=== PATIENT | female | born 1960 | race Caucasian/White ===

== ENCOUNTER 2022-01-08 01:03 | Emergency (ER) | payer OTHER, SELFPAY ==
[2022-01-08 01:36] VITALS: BP 162/79; PULSE 69; RESP 16; TEMP 36.3; O2SAT 97; BMI 25.7
--- NOTE | 2022-01-08 02:27 | DI.US.S_ITS ---
PROCEDURE: US PERIPH VENOUS LOW EXTREM LT INDICATIONS: Pain in left lower leg TECHNIQUE: Real-time imaging, as well as color and pulse Doppler interrogation, were performed of the lower extremity deep veins from the inguinal ligament to the popliteal fossa. COMPARISON: None. FINDINGS: The common femoral, femoral and popliteal veins are normally compressible, and free of intraluminal thrombus. Color and pulse Doppler demonstrate normal phasic intraluminal flow. There is normal augmentation response to distal compression maneuver. IMPRESSION: Negative for deep venous thrombosis in the left lower extremity No significant discrepancy with preliminary report by overnight radiologist. Dictated by: Nitesh Naylor M.D. on 01/08/2022 at 7:10 Approved by: Nitesh Naylor M.D. on 01/08/2022 at 7:12
--- NOTE | 2022-01-08 03:35 | ED.EXTPRO ---
HPI - Extremity Problem General Chief complaint: Extremity Problem,Nontraumatic Stated complaint: possible blood clot left leg Time Seen by Provider: 01/08/22 03:33 Source: patient Mode of arrival: Ambulatory History of Present Illness HPI Narrative: 61-year-old female nonsmoker with noncontributory medical history presents for evaluation of pain, redness and warmth in her left anterior daniel in the absence of injury. She started noticing some discomfort a day or 2 ago and seems to be worse when she walks and improves with rest. She denies any fever or chills and has no chest pain or shortness of breath. She states that she has been on a road trip from [place] to [facility] over the past few weeks. She denies any history of blood clot. She states that she thinks she probably bumped her daniel on the hitch of a vehicle a few days ago but denies any other possible injury. Related Data Previous Rx's Medication Instructions Recorded cephalexin 500 mg capsule 500 mg PO Q6H 7 days #28 caps 01/08/22 Allergies Allergy/AdvReac Type Severity Reaction Status Date / Time No Known Drug Allergies Allergy Verified 01/08/22 01:36 Review of Systems Review of Systems Narrative: GENERAL: Denies chills, fatigue, malaise, fever, sweats. HEENT: Denies sinus pain, ear pain, sore throat, difficulty swallowing, dizziness. RESPIRATORY: Denies dyspnea, cough, wheezing, hemoptysis, sputum. CARDIOVASCULAR: Denies chest pain, palpitations, orthopnea, edema, GASTROINTESTINAL: Denies nausea, vomiting, abdominal pain, diarrhea, constipation, melena. : Denies dysuria, frequency, incontinence, hematuria, urinary retention. MUSCULOSKELETAL: denies weakness, joint pain, or bony pain SKIN: Denies rash, skin lesions, or other NEUROLOGIC: Denies weakness, headache, numbness, change in speech, confusion, seizures, incoordination. PSYCHIATRIC: No concerning psychosocial issues. 12 point review of systems is negative except for those stated above Patient History Social History Smoking Status: Never smoker Smoking Status: Never smoker alcohol intake frequency: a few times a week Substance Use Type: does not use Exam Narrative Exam Narrative: GEN: AOx3 and in mild distress EYES: Pupils are equal, round, and reactive to light and accommodation. Extraoccular muscles are intact bilaterally. There is no subconjunctival hemorrhage or exudate. CHEST: Lungs are clear to auscultation bilaterally and free of wheezes, rales, or rhonchi. Heart rate is regular rhythm, there are no murmurs, clicks, rubs, or gallops. There is no chest wall tenderness. ABD: Abdomen is soft and nontender. There is no guarding or rebound. Bowel sounds are normal in all 4 quadrants. There is no mass or organomegaly. EXT: Mild left anterior lower extremity erythema and warmth with minimal tenderness, no circumferential erythema, no calf pain and no medial thigh pain SKIN: Warm, pink, and dry. No erythema or rash Initial Vital Signs Initial Vital Signs: Vital Signs Temperature 97.4 F L 01/08/22 01:36 Pulse Rate 69 01/08/22 01:36 Respiratory Rate 16 01/08/22 01:36 Blood Pressure 162/79 H 01/08/22 01:36 Pulse Oximetry 97 01/08/22 01:36 Oxygen Delivery Method 01/08/22 01:36 Course Orders Ordered: ED Orders 01/08/22 02:27 US periph venous low extrem lt Stat Vital Signs Vital signs: Vital Signs - 8 hr 01/08/22 01:36 01/08/22 04:14 Temperature 97.4 F L Pulse Rate 69 78 Respiratory Rate 16 16 Blood Pressure 162/79 H 168/81 H Pulse Oximetry 97 98 Oxygen Delivery Method Room Air Room Air MDM - Extremity (Nontraumatic) Imaging Data US - DVT: Radiologist's Impression: Close Vascular Ultrasound (Signed) Nitesh Naylor - 01/08/22 Launch?[address] [address] Ultrasound Report Signed Patient: Kimberly Arce MR#: [id number] : 1960 Acct:[id number] Age/Sex: 61 / F Date of Service: 01/08/22 Loc: ED Accession Number: [id number] ?? Procedure: US periph venous low extrem lt Ordering Provider: Harvinder Simmons D.O. PROCEDURE:? US PERIPH VENOUS LOW EXTREM LT ? INDICATIONS:? Pain in left lower leg ? TECHNIQUE:? Real-time imaging, as well as color and pulse Doppler interrogation, were performed of the lower extremity deep veins from the inguinal ligament to the popliteal fossa.? ? COMPARISON:? None. ? FINDINGS:? The common femoral, femoral and popliteal veins are normally compressible, and free of intraluminal thrombus.? Color and pulse Doppler demonstrate normal phasic intraluminal flow.? There is normal augmentation response to distal compression maneuver. ? ? IMPRESSION:? Negative for deep venous thrombosis in the left lower extremity ? No significant discrepancy with preliminary report by overnight radiologist. ? ? Dictated by: Nitesh Naylor M.D. on 01/08/2022 at 7:10 ? ? Approved by: Nitesh Naylor M.D. on 01/08/2022 at 7:12 ? MDM Narrative Medical decision making narrative: Multiple etiologies for patient's symptoms considered including: [Cellulitis versus DVT versus traumatic injury versus other] Patient with mild possible injury a few days ago with erythema, warmth and tenderness of the lower extremity. DVT considered but thought unlikely given negative findings on ultrasound. Cellulitis considered most likely given history and physical.. Findings and discharge diagnosis discussed with patient/family followed by verbalization of understanding Return precautions discussed with patient/family whom verbalize understanding. Discharge Plan Departure Patient Disposition: Home Clinical Impression: Cellulitis Qualifiers: Site of cellulitis: extremity Site of cellulitis of extremity: lower extremity Laterality: left Qualified Code(s): L03.116 - Cellulitis of left lower limb Instructions: DI for Cellulitis -- Adult Activity Restrictions/Additional Instructions: *You have been diagnosed with [left lower extremity redness, pain and warmth most likely from mild cellulitis] *What to do: *Please continue to take your regular medications as directed. [x ] New medication prescriptions sent to your pharmacy: [ [facility]] [ ] New medication written as a paper prescription [ ] No new medications given *Please follow up with your primary care provider in 2-3 days, call for an appointment. Let them know you were seen in the Emergency Department and that we ask that you be seen in follow up. We will electronically transmit a record of today's note if your PCP is in our system *If you do not have a primary care provider please contact the [facility] Resource line at [phone]. They will ask some questions about your medical history and help get you set up with a doctor in the community. *Return to Emergency Department if you should have any new, worsening or concerning symptoms, such as [fever greater than 101 F, shaking chills, worsening pain, persistent vomiting or other bothersome symptoms] Prescriptions: New cephalexin 500 mg capsule 500 mg PO Q6H 7 Days Qty: 28 0RF Visit Report Forms: Patient Portal/API
--- NOTE | 2022-01-08 04:00 | PC.NURSE ---
Patient came in for left leg pain aggrevated when ambulated, warm to touch the affected area, pain scale 5/10 when touched. Ultrasound of left leg was done.
[2022-01-08 04:14] VITALS: BP 168/81; PULSE 78; RESP 16; O2SAT 98
== END 2022-01-08 04:16 | disposition home or self-care (01) ==
PROVIDERS: Emergency Provider Emergency Medicine
DX: L03.116 Cellulitis of left lower limb (principal)
CPT/HCPCS: 93971; 99281; 99283